=== PATIENT | male | born 1965 | race African-American/Black ===

== ENCOUNTER 2018-01-03 19:18 | Emergency (ER) | payer MEDICAID ==
[~2018-01-03] VITALS: Ht 185.4 cm; Wt 83.9 kg
[2018-01-03] MEDS ORDERED: IBUPROFEN600 MG ORAL (19:56)
[2018-01-03] MEDS ORDERED: ROBAXIN500 MG PO (19:56)
--- NOTE | 2018-01-03 19:56 | Emergency Room Report ---
History of Present Illness General Chief Complaint: Upper Extremity Injury Source: Patient Present Illness HPI 52-year-old male patient presents ER complaining of left shoulder spasm 1 day. Reports that he was "partying last night with some friends", using ecstasy, and masturbating a lot with his left hand. Denies acute trauma. Reports he is right-hand dominant. Reports over this morning and shoulder was sore. Reports crampy muscle spasms and shoulder. Denies chest pain, shortness of breath, abdominal pain, fever. Denies loss of consciousness. Denies other acute symptoms. Allergies: Coded Allergies: No Known Allergies (Unverified , 01/03/18) Patient History Past Medical History: see triage record Reviewed Nursing Documentation: PMH: Agreed; PSxH: Agreed Nursing Documentation-PMH Hx Asthma: Yes Review of Systems All Other Systems: negative except mentioned in HPI Physical Exam Vital Signs Date Time Temp Pulse Resp B/P (MAP) Pulse Ox O2 Delivery O2 Flow Rate FiO2 01/03/18 19:31 99.3 87 18 158/89 97 Room Air 99.3 Sp02 EP Interpretation: reviewed, normal General Appearance: well appearing, no apparent distress, alert, GCS 15, non- toxic Head: normocephalic, atraumatic Eyes: bilateral eye normal inspection, bilateral eye PERRL ENT: hearing grossly normal, normal pharynx, no angioedema, normal voice, uvula midline, moist mucus membranes Neck: full range of motion Respiratory: lungs clear, normal breath sounds, no rhonchi, no respiratory distress, no accessory muscle use, no wheezing, speaking full sentences Cardiovascular #1: regular rate, rhythm, no edema Cardiovascular #2: 2+ radial (R), 2+ radial (L) Musculoskeletal: back normal, digits/nails normal, gait/station normal, normal range of motion, non-tender, other - negative sulcus sign, negative skin tenting ,negative Neer impingement, negative Bower, negative belly press, negative back pushoff[; NVI, AIN, PIN, radial nerves intact,cap Refill less than 2 seconds Neurologic: alert, oriented x3, responsive, motor strength/tone normal, sensory intact Psychiatric: mood/affect normal Skin: no rash Medical Decision Making PA Attestation Dr. Gutierrez is my supervising Physician whom patient management has been discussed with. Diagnostic Impression: Primary Impression: Muscle spasm Additional Impression: Elevated blood pressure reading ER Course Pt. presents to the ED c/o left shoulder spasms. Ddx considered but are not limited to fracture, sprain, strain, contusion, dislocation. No erythema, no warmth to touch, no fever, nontoxic appearing, low suspicion for septic joint. Vital signs: are WNL, pt. is afebrile. Blood pressure mildly elevated at this time, will continue to monitor. Denies hx of cardiovascular disease or HTN. Denies chest pain, shortness of breath, vision changes, does not require acute intervention at ER at this time. Follow with primary care provider discuss further treatment and referral. Advised on low-sodium diet, advised on diet and exercise. Ordered pain medication. ER COURSE Provided with pain medication. Full range of motion of left arm, no deformity, no acute injury, does not require imaging. Pain likely due to muscle spasm from overuse. not negative sulcus sign, no skin tenting, low suspicion for dislocation. due to side effect of possible drowsiness, will not provide muscle relaxant here in the ER since patient is driving home. Will provide prescription for muscle relaxant at home. Did not take prior drinking driving or operating heavy machinery. patient reports understanding and agreement to plan. Will provide Tylenol to the patient. states has not seen a dentist on take Motrin due to possible GI irritation, informed patient Tylenol easier on GI system than Motrin. Patient instructed on RICE method: rest, ice, compression, elevation. Patient instructed on rest, ice and heat. Followup with primary care provider. Discuss referral to ortho/pain management/ PT as needed. Discuss further imaging with MRI/CT as needed. DISCHARGE: -Rx provided for Tylenol for pain symptoms. -Rx provided for Methocarbamol. SE drowsiness, do not drink, drive, or operate heavy machinery while using. At this time pt. is stable for d/c to home. Patient is resting comfortably, in no acute distress, nontoxic appearing, talking without difficulty, smiling and laughing. Will provide printed patient care instructions, and any necessary prescriptions. Patient instructed to follow with primary care provider in 3 - 5 days and to request further follow-up as needed. Care plan and follow up instructions have been discussed with the patient prior to discharge. Take medications as directed. Patient questions asked and answered. Patient reports understanding and agreement to treatment plan. ER precautions given, patient instructed to return to ER immediately for any new or worsening of symptoms. - Please note that this Emergency Department Report was dictated using [employer] integration developer technology software, occasionally this can lead to erroneous entry secondary to interpretation by the dictation equipment. Last Vital Signs Date Time Temp Pulse Resp B/P (MAP) Pulse Ox O2 Delivery O2 Flow Rate FiO2 01/03/18 19:31 99.3 87 18 158/89 97 Room Air 99.3 Disposition: HOME, SELF-CARE Condition: Stable Scripts Methocarbamol* (ROBAXIN*) 500 Mg Tablet 500 MG PO TID, #15 TAB 0 Refills Prov: Reinaldo Demarco 01/03/18 Ibuprofen* (MOTRIN*) 600 Mg Tablet 600 MG ORAL Q8H PRN for For Pain, #30 TAB 0 Refills Prov: Reinaldo Demarco 01/03/18 Patient Instructions: Muscle Cramps and Spasms, [id number] Additional Instructions: Patient instructed to follow up with primary care provider 3-5 and discuss further referral and imaging at that time. Patient instructed on rest, ice and heat. Do not take muscle relaxant prior to drinking, driving, or operating heavy machinery. Take medications as directed. Patient questions asked and answered. ER precautions given, patient instructed to return to ER immediately for any new or worsening of symptoms. Reinaldo Demarco Jan 03, 2018 19:56
[2018-01-03 19:58] VITALS: BP 158/89
== END 2018-01-03 20:00 | disposition home or self-care (01) ==
LOC: EMR 20:00
DX: M62.838 Other muscle spasm (principal); R03.0 Elevated blood-pressure reading, without diagnosis of hypertension
CPT/HCPCS: 99284

== ENCOUNTER 2018-09-10 11:37 | Emergency (ER) | payer MEDICAID ==
[~2018-09-10] VITALS: Ht 185.4 cm; Wt 83.9 kg
[~2018-09-10 11:37] MED LIST: IBUPROFEN600 MG ORAL; ROBAXIN500 MG PO
--- NOTE | 2018-09-10 12:04 | NUR ---
ED Nurse Note: PT WALKED IN TO ER TODAY FROM HOME. AOX4. PT C/O MUSCLE SPASM ON CHEST X 1 HOUR AGO. PT DENIES PAIN, DIZZINESS, NAUSEA, VOMITING, NUMBNESS OR TINGLING. MUSCLE STRENGTH 5/5 IN ALL EXTREMITIES. GAIT STABLE. PT STATES HE HAD A SIMILAR EPISODE X LAST WEEK BUT WITH SOB SO HE CALLED 911. PT STATES EMS CHECKED BG AND EKG AND TOLD HIM HE WAS FINE. PT DENIES SOB OR DIFFICULTY BREATHING AT THIS TIME. RR 13 @ 100% O2 SATURATION ON RA. NO SIGNS OF RESPIRATORY DISTRESS OR RETRACTIONS NOTED.
[2018-09-10 12:07] VITALS: BP 148/105
--- NOTE | 2018-09-10 12:32 | Emergency Room Report ---
History of Present Illness General Chief Complaint: General Complaint Source: Patient Present Illness HPI Patient presents with complaints of mid upper chest discomfort and palpitation sensation Patient reports that about 2 weeks ago he had similar episode paramedics had seen him performed Accu-Chek and other muscle testing and he was told to follow- up as an outpatient today while he was driving he had a similar episode where he felt a sharp pain in the upper mid chest area associated with a secondary palpitation sensation And presents to the emergency room for further evaluation Denies any headache denies any chest pain actively and eyes any focal weakness Allergies: Coded Allergies: No Known Allergies (Unverified , 01/03/18) Patient History Past Medical History: see triage record Pertinent Family History: none Reviewed Nursing Documentation: PMH: Agreed; PSxH: Agreed Nursing Documentation-PMH Past Medical History: No Stated History Review of Systems All Other Systems: negative except mentioned in HPI Physical Exam Vital Signs Date Time Temp Pulse Resp B/P (MAP) Pulse Ox O2 Delivery O2 Flow Rate FiO2 09/10/18 11:46 96.1 69 18 136/74 100 Room Air Sp02 EP Interpretation: reviewed, normal General Appearance: well appearing, no apparent distress Head: normocephalic, atraumatic Eyes: bilateral eye PERRL, bilateral eye EOMI ENT: hearing grossly normal, normal pharynx, TMs + canals normal, uvula midline Neck: full range of motion, supple, no meningismus, no bony tend Respiratory: lungs clear, normal breath sounds, no rhonchi, no respiratory distress, no retraction, no accessory muscle use Cardiovascular #1: normal peripheral pulses, regular rate, rhythm, no edema, no gallop, no JVD, no murmur Gastrointestinal: normal bowel sounds, non tender, soft, no mass, no organomegaly, non-distended, no guarding, no hernia, no pulsatile mass, no rebound Genitourinary: no CVA tenderness Musculoskeletal: normal inspection Neurologic: oriented x3, responsive, liner machine operator helper III-XII nml as tested, motor strength/ tone normal, sensory intact Psychiatric: mood/affect normal Skin: normal color, no rash, warm/dry, palpation normal Lymphatic: normal inspection, no adenopathy Medical Decision Making Diagnostic Impression: Primary Impression: Chest pain Additional Impression: Palpitations ER Course Patient is a fairly complex patient with multiple differential to consideration including but not limited to cardiac cardiopulmonary and vascular emergencies Patient's EKG is normal Blood work reveals mildly elevated total CK otherwise all within normal limits patient continues to rest well hemodynamically stable and requires close outpatient follow-up Labs Test 09/10/18 12:24 White Blood Count 6.8 K/UL (4.8-10.8) Red Blood Count 5.73 M/UL (4.70-6.10) Hemoglobin 14.0 G/DL (14.2-18.0) Hematocrit 44.2 % (42.0-52.0) Mean Corpuscular Volume 77 FL (80-99) Mean Corpuscular Hemoglobin 24.4 PG (27.0-31.0) Mean Corpuscular Hemoglobin Concent 31.6 G/DL (32.0-36.0) Red Cell Distribution Width 13.2 % (11.6-14.8) Platelet Count 232 K/UL (150-450) Mean Platelet Volume 6.8 FL (6.5-10.1) Neutrophils (%) (Auto) 56.7 % (45.0-75.0) Lymphocytes (%) (Auto) 31.1 % (20.0-45.0) Monocytes (%) (Auto) 10.3 % (1.0-10.0) Eosinophils (%) (Auto) 0.9 % (0.0-3.0) Basophils (%) (Auto) 1.0 % (0.0-2.0) Sodium Level 139 MMOL/L (136-145) Potassium Level 3.7 MMOL/L (3.5-5.1) Chloride Level 103 MMOL/L (98-107) Carbon Dioxide Level 30 MMOL/L (21-32) Anion Gap 6 mmol/L (5-15) Blood Urea Nitrogen 13 mg/dL (7-18) Creatinine 1.2 MG/DL (0.55-1.30) Estimat Glomerular Filtration Rate > 60 mL/min (>60) Glucose Level 98 MG/DL (74-106) Calcium Level 8.8 MG/DL (8.5-10.1) Total Bilirubin 1.2 MG/DL (0.2-1.0) Direct Bilirubin 0.2 MG/DL (0.0-0.3) Aspartate Amino Transf (AST/SGOT) 21 U/L (15-37) Alanine Aminotransferase (ALT/SGPT) 31 U/L (12-78) Alkaline Phosphatase 68 U/L (46-116) Total Creatine Kinase 457 U/L (26-308) Creatine Kinase MB 0.9 NG/ML (0.0-3.6) Creatine Kinase MB Relative Index 0.1 Troponin I 0.000 ng/mL (0.000-0.056) Total Protein 7.3 G/DL (6.4-8.2) Albumin 3.7 G/DL (3.4-5.0) Globulin 3.6 g/dL Albumin/Globulin Ratio 1.0 (1.0-2.7) EKG Diagnostic Results Rate: normal Rhythm: NSR ST Segments: no acute changes Rhythm Strip Diag. Results EP Interpretation: yes Rate: 60 Rhythm: NSR, no PVC's, no ectopy Chest X-Ray Diagnostic Results Chest X-Ray Diagnostic Results : Chest X-Ray Ordered: Yes # of Views/Limited/Complete: 1 View Indication: Chest Pain EP Interpretation: Yes Interpretation: no consolidation, no effusion, no pneumothorax Impression: No acute disease Electronically Signed by: Mally Brewer DO Last Vital Signs Date Time Temp Pulse Resp B/P (MAP) Pulse Ox O2 Delivery O2 Flow Rate FiO2 09/10/18 12:07 60 13 Room Air 09/10/18 12:07 97.3 148/105 100 Status: improved Disposition: HOME, SELF-CARE Condition: Improved Referrals: DUSTIN CESARREFERRING (PCP) Additional Instructions: Patient is provided with the discharge instructions notified to follow up with primary doctor in the next 2-3 days otherwise return to the er with any worsening symptoms. Please note that this report is being documented using [employer] technology. This can lead to erroneous entry secondary to incorrect interpretation by the dictating instrument. Mally Brewer DO Sep 10, 2018 12:32
[2018-09-10 12:35] LABS: EOSINOPHILS % (AUTO) 0.9 % (0.0-3.0); HEMATOCRIT 44.2 % (42.0-52.0); LYMPHOCYTES % (AUTO) 31.1 % (20.0-45.0); MEAN CORPUSCULAR VOLUME 77 FL (80-99); MONOCYTES % (AUTO) 10.3 % (1.0-10.0); NEUTROPHILS % (AUTO) 56.7 % (45.0-75.0); PLATELET COUNT 232 K/UL (150-450); RED BLOOD COUNT 5.73 M/UL (4.70-6.10); RED CELL DISTRIBUTION WIDTH 13.2 % (11.6-14.8); WHITE BLOOD COUNT 6.8 K/UL (4.8-10.8)
[2018-09-10 12:53] LABS: ANION GAP 6 mmol/L (5-15); BLOOD UREA NITROGEN 13 mg/dL (7-18); CALCIUM 8.8 MG/DL (8.5-10.1); CARBON DIOXIDE 30 MMOL/L (21-32); CHLORIDE 103 MMOL/L (98-107); CREATININE 1.2 MG/DL (0.55-1.30); POTASSIUM 3.7 MMOL/L (3.5-5.1); SODIUM 139 MMOL/L (136-145)
--- NOTE | 2018-09-10 13:09 | Diagnostic Imaging Report ---
Indication: Chest pain Comparison: None A single view chest radiograph was obtained. Findings: Cardiomediastinal appearance is within normal limits for age. The lungs are clear. Pulmonary vascularity is appropriate. The diaphragmatic contour is smooth and costophrenic angles are sharp. No pleural effusions are identified. The bones are unremarkable. Impression: No acute findings
[2018-09-10 13:16] LABS: ALANINE AMINOTRANSFERASE 31 U/L (12-78); ALBUMIN 3.7 G/DL (3.4-5.0); ALKALINE PHOSPHATASE 68 U/L (46-116); ASPARTATE AMINO TRANSFERASE 21 U/L (15-37); BILIRUBIN,TOTAL 1.2 MG/DL (0.2-1.0); CKMB 0.9 NG/ML (0.0-3.6); CREATINE KINASE 457 U/L (26-308)
[2018-09-10 13:17] LABS: BILIRUBIN,DIRECT 0.2 MG/DL (0.0-0.3)
[2018-09-10 13:59] VITALS: BP 142/86
--- NOTE | 2018-09-10 14:01 | NUR ---
ER DISCHARGE NOTE: Patient is cleared to be discharged per ERMD, pt is aox4, on room air, with stable vital signs. pt was given dc and prescription instructions, pt was able to verbalize understanding, pt id band removed without complications. pt is able to ambulate with steady gait. pt took all belongings.
--- NOTE | 2018-09-12 20:24 | Cardiology Report ---
APPROVED REPORT EKG Measurement Heart [id number] Sinus bradycardia Otherwise normal ECG
== END 2018-09-10 14:01 | disposition home or self-care (01) ==
LOC: EMR 12:09
DX: R07.89 Other chest pain (principal); R00.2 Palpitations
CPT/HCPCS: 36415; 71045; 80053; 82248; 82550; 82553; 84484; 85025; 93005; 99284

== ENCOUNTER 2019-04-12 21:59 | Emergency (ER) | payer MEDICAID ==
[~2019-04-12] VITALS: Ht 185.4 cm; Wt 83.9 kg
[2019-04-12 22:08] VITALS: BP 150/90
--- NOTE | 2019-04-12 22:08 | NUR ---
ED Nurse Note: pt walked in to ED for a bump that was formed to his right groin when he was bearing down and voiding ealier today. pt denies any pain.
[2019-04-12] MEDS ORDERED: COLACE100 MG ORAL (22:18)
[2019-04-12 22:23] VITALS: BP 132/79
--- NOTE | 2019-04-12 22:23 | NUR ---
ER DISCHARGE NOTE: Patient is cleared to be discharged per ERMD, pt is aox4, on room air, with stable vital signs. pt was given dc instructions, pt was able to verbalize understanding, pt id band removed without complications. pt is able to ambulate with steady gait. pt took all belongings.
--- NOTE | 2019-04-12 23:10 | Emergency Room Report ---
History of Present Illness General Chief Complaint: General Complaint Source: Patient Present Illness HPI 53-year-old male presents after increased discomfort to the right lower abdomen. He was noted to have increased bulging to the right inguinal area. He denies any fever. Denies any vomiting. Onset of symptoms approximate 1 hour prior to arrival. He reports having been Valsalva laying for long time prior to the onset. He denies any prior medical history. He does not take any medications regularly. He states he recently started smoking marijuana but denies any cough. Allergies: Coded Allergies: No Known Allergies (Unverified , 01/03/18) Patient History Past Medical History: see triage record Reviewed Nursing Documentation: PMH: Agreed; PSxH: Agreed Nursing Documentation-PMH Past Medical History: No Stated History Review of Systems All Other Systems: negative except mentioned in HPI Physical Exam Vital Signs Date Time Temp Pulse Resp B/P (MAP) Pulse Ox O2 Delivery O2 Flow Rate FiO2 04/12/19 22:01 97.9 70 16 154/103 (120) 99 Room Air 04/12/19 22:08 99 General Appearance: well appearing, no apparent distress, alert, GCS 15 Head: normocephalic, atraumatic ENT: hearing grossly normal, normal voice Neck: full range of motion, supple Respiratory: no respiratory distress, speaking full sentences Cardiovascular #1: normal inspection, regular rate, rhythm, no edema Gastrointestinal: normal inspection, soft, hernia - Right inguinal Genitourinary: normal inspection Musculoskeletal: normal inspection Neurologic: normal inspection, alert, oriented x3, responsive, normal gait Psychiatric: normal inspection, mood/affect normal Skin: no rash Medical Decision Making Diagnostic Impression: Primary Impression: Abdominal pain ER Course Patient presented for right lower abdomen discomfort. Differential diagnosis include was not limited to hernia, abdominal wall defect, mass among others. Patient has a benign exam and does not appear to require any imaging or laboratory testing at this time. Patient does not appear to have any evidence of incarcerated hernia. Patient does appear to have some slight bulging to the right inguinal area. There appears to be some bowel which protrudes with Valsalva but there is no incarceration or bowel in the hernia without Valsalva. Patient is placed on stool softeners. Is advised to follow-up with primary care physician for general surgery referral. He is advised to return if worse. Last Vital Signs Date Time Temp Pulse Resp B/P (MAP) Pulse Ox O2 Delivery O2 Flow Rate FiO2 04/12/19 22:23 98.0 62 17 132/79 100 Room Air 04/12/19 22:08 99 Status: improved Disposition: HOME, SELF-CARE Condition: Stable Scripts Docusate Sodium* (COLACE*) 100 Mg Capsule 100 MG ORAL TWICE A DAY, #14 CAP Prov: Lio Alanis MD 04/12/19 Referrals: DUSTIN CESAR,REFERRING (PCP) Patient Instructions: Abdominal Pain, Adult Additional Instructions: Follow up with general surgery if symptoms worsen or persistent vomiting or other concerns. Lio Alanis MD Apr 12, 2019 23:10
== END 2019-04-12 22:23 | disposition home or self-care (01) ==
LOC: EMR 22:18
DX: R10.31 Right lower quadrant pain (principal); F12.10 Cannabis abuse, uncomplicated
CPT/HCPCS: 99282